=== PATIENT | male | born 1965 | race Caucasian/White ===

== ENCOUNTER 2020-07-04 17:35 | Observation (INO) ==
[2020-07-04] MEDS ORDERED: Naloxone 0.4 MG/ML INJ IVP PRN (19:48)
[2020-07-04] MEDS ORDERED: Melatonin 3 MG TABLET PO PRN (19:48)
[2020-07-04] MEDS ORDERED: Ondansetron 4 MG/2 ML VIAL IVP PRN (19:48)
[2020-07-04] MEDS ORDERED: Lactulose 200 GM, Sodium Chloride IRRigation 700 ML RC ONE (19:58)
[2020-07-04] MEDS: MetroNIDAZOLE 500 MG/100 ML 500 MG/100 ML BAG IVPB SCH (23:01)
[2020-07-05] MEDS ORDERED: 0.9 % Sodium Chloride 1,000 ML IVC ONE (00:15)
[2020-07-05] MEDS ORDERED: *HR* LORazepam 2 MG/ML VIAL IVP PRN ×3 (00:26)
[2020-07-05 03:44] LABS: Albumin 3.2 g/dL (3.5-5.7); Bilirubin,Total 5.2 mg/dL (0.3-1.0); Calcium 9.6 mg/dL (8.6-10.3); Globulin 3.1 g/dL (2.4-3.5); Magnesium 2.4 mg/dL (1.6-2.6); Phosphorous 4.1 mg/dL (2.7-4.5); Potassium 3.6 mEq/L (3.5-5.1); Total Protein 6.3 g/dL (6.4-8.9)
[2020-07-05] MEDS ORDERED: *HR* Dextrose 50 % in Water (Vial) 50 ML VIAL IVP PRN (03:49)
[2020-07-05] MEDS ORDERED: D5% in Water 1,000 ML IVC PRN (03:49)
[2020-07-05] MEDS ORDERED: Dextrose Gel 15 GM/37.5 ML TUBE PO PRN ×2 (03:49)
[2020-07-05 04:36] LABS: Eosinophils % 0.9 %
[2020-07-05 04:38] LABS: Basophils # 0.1 K/mcL (0.0-0.2); Basophils % 0.4 %; Eosinophils # 0.1 K/mcL (0.0-0.6); Hemoglobin 13.4 g/dL (12.9-16.9); Immature Granulocytes % 0.6 % (0-4); Immature Platelets 3.6 % (1.1-6.1); Lymphocytes # 1.3 K/mcL (0.6-4.6); Lymphocytes % 10.8 %; Mean Corpuscular HGB Conc 31.9 g/dL (31.6-35.5); Mean Corpuscular Hemoglobin 33.4 pg (28.0-33.3); Mean Corpuscular Volume 104.7 fL (83.0-100.0); Monocytes # 0.6 K/mcL (0.0-1.3); Monocytes % 5.4 %; Neutrophils # 9.5 K/mcL (1.6-8.9); Platelet Count 51 K/mcL (140-400); Red Blood Count 4.01 M/mcL (4.19-5.50); Segmented Neutrophils % 81.9 %; White Blood Count 11.6 K/mcL (4.3-11.1)
[2020-07-05] MEDS ORDERED: Sodium Bicarbonate 75 MEQ in D5% in Water 1,000 ML IVC SCH (05:00)
[2020-07-05] MEDS ORDERED: Insulin LISPRO 300 UNITS/3 ML VIAL SUBQ SCH (06:00)
[2020-07-05] MEDS ORDERED: Insulin Human Regular 100 UNIT in 0.9 % Sodium Chloride 100 ML IVC SCH (07:30)
[2020-07-05] MEDS ORDERED: D5% in Water 1,000 ML IVC SCH (07:30)
[2020-07-05] MEDS: MetroNIDAZOLE 500 MG/100 ML 500 MG/100 ML BAG IVPB SCH ×2 (08:22→16:52)
[2020-07-05] MEDS ORDERED: Thiamine (B-1) 200 MG in 0.9 % Sodium Chloride 50 ML IVPB SCH (09:00)
[2020-07-05 13:37] LABS: BUN/Creatinine Ratio 31 (6-26); Blood Urea Nitrogen 42 mg/dL (6-20); Calcium 9.3 mg/dL (8.6-10.3); Carbon Dioxide 18 mEq/L (23-29); Chloride 127 mEq/L (98-107); Glucose 113 mg/dL (70-105); Osmolality,Calculated 329 (280-300); Potassium 4.3 mEq/L (3.5-5.1); Sodium 154 mEq/L (136-145); eGFR For African Americans > 60 (> 60); eGFR For Non-African Americans 54 (> 60)
[2020-07-05 19:01] VITALS: BP 103/66
== END 2020-07-05 20:25 | disposition short-term general hospital (02) ==
LOC: 2NNU
PROVIDERS: ADMIT Internal Medicine; ATTEND Internal Medicine

== ENCOUNTER 2020-09-04 05:15 | Inpatient (IN) ==
[2020-09-04] MEDS ORDERED: Dextrose Gel 15 GM/37.5 ML TUBE PO PRN ×2 (08:20)
[2020-09-04] MEDS ORDERED: Ondansetron 4 MG/2 ML VIAL IVP PRN (08:20)
[2020-09-04] MEDS ORDERED: *HR* Dextrose 50 % in Water (Vial) 50 ML VIAL IVP PRN (08:20)
[2020-09-04] MEDS ORDERED: D5% in Water 1,000 ML IVC PRN (08:20)
[2020-09-04] MEDS ORDERED: Naloxone 0.4 MG/ML INJ IVP PRN (08:20)
[2020-09-04] MEDS ORDERED: Lactulose Oral Soln 20 GM/30 ML UDC PO SCH ×2 (09:00→11:15)
[2020-09-04] MEDS: Thiamine (B-1) 100 MG in 0.9 % Sodium Chloride 50 ML IVPB SCH (10:16)
[2020-09-04] MEDS: Folic Acid 1 MG in 0.9 % Sodium Chloride 50 ML IVPB SCH (10:18)
[2020-09-04] MEDS: Insulin LISPRO 300 UNITS/3 ML VIAL SUBQ SCH ×3 (12:56→20:22)
[2020-09-04] MEDS: Lactulose Oral Soln 20 GM/30 ML UDC PO SCH ×3 (12:56→20:11)
[2020-09-04] MEDS: *HR* Heparin 5,000 UNIT/ML VIAL SQ SCH (17:27)
[2020-09-05] MEDS: Insulin LISPRO 300 UNITS/3 ML VIAL SUBQ SCH ×6 (00:28→21:15)
[2020-09-05] MEDS: Lactulose Oral Soln 20 GM/30 ML UDC PO SCH ×3 (00:28→10:00)
[2020-09-05 02:58] LABS: Lymphocytes % 16.1 %
[2020-09-05 03:00] LABS: Basophils % 0.5 %; Eosinophils # 0.2 K/mcL (0.0-0.6); Hematocrit 32.2 % (37.5-50.1); Hemoglobin 10.8 g/dL (12.9-16.9); Immature Granulocytes % 0.4 % (0-4); Immature Platelets 1.9 % (1.1-6.1); Lymphocytes # 1.3 K/mcL (0.6-4.6); Mean Corpuscular HGB Conc 33.5 g/dL (31.6-35.5); Mean Corpuscular Volume 92.5 fL (83.0-100.0); Monocytes # 0.8 K/mcL (0.0-1.3); Monocytes % 10.1 %; Neutrophils # 5.5 K/mcL (1.6-8.9); Platelet Count 65 K/mcL (140-400); Red Blood Count 3.48 M/mcL (4.19-5.50); Red Cell Distribution Width 16.4 % (11.5-14.5); Segmented Neutrophils % 70.9 %; White Blood Count 7.8 K/mcL (4.3-11.1)
[2020-09-05 03:05] LABS: INR 1.3; Prothrombin Time 14.4 Seconds (9.4-12.1)
[2020-09-05 03:22] LABS: Alanine Aminotransferase 66 Units/L (7-52); Albumin 3.1 g/dL (3.5-5.7); Alkaline Phosphatase 340 Units/L (34-104); Aspartate Amino Transferase 73 Units/L (13-39); BUN/Creatinine Ratio 21 (6-26); Bilirubin,Direct 1.4 mg/dL (0.0-0.2); Bilirubin,Indirect 2.4 mg/dL (0.0-1.0); Bilirubin,Total 3.8 mg/dL (0.3-1.0); Blood Urea Nitrogen 23 mg/dL (6-20); Calcium 9.6 mg/dL (8.6-10.3); Carbon Dioxide 17 mEq/L (23-29); Chloride 120 mEq/L (98-107); Glucose 151 mg/dL (70-105); Osmolality,Calculated 307 (280-300); Potassium 3.6 mEq/L (3.5-5.1); Sodium 145 mEq/L (136-145); Total Protein 6.1 g/dL (6.4-8.9); eGFR For African Americans > 60 (> 60); eGFR For Non-African Americans > 60 (> 60)
[2020-09-05] MEDS: *HR* Heparin 5,000 UNIT/ML VIAL SQ SCH ×2 (05:37→16:01)
[2020-09-05] MEDS ORDERED: Furosemide 40 MG TABLET PO SCH (07:00)
[2020-09-05] MEDS ORDERED: NALOXEGOL OXALATE 12.5 MG PO SCH (07:00)
[2020-09-05] MEDS ORDERED: Multivit/Ca/Min/Fe/FA 1 TAB TABLET PO SCH (07:00)
[2020-09-05] MEDS ORDERED: Cholecalciferol (D-3) 1,000 UNIT (25MCG) TABLET PO SCH (09:00)
[2020-09-05] MEDS: Thiamine (B-1) 100 MG in 0.9 % Sodium Chloride 50 ML IVPB SCH (10:01)
[2020-09-05] MEDS: Folic Acid 1 MG in 0.9 % Sodium Chloride 50 ML IVPB SCH (10:02)
[2020-09-05] MEDS ORDERED: Iron Sucrose Complex 200 MG in 0.9 % Sodium Chloride 100 ML IVPB ONE (12:17)
[2020-09-05] MEDS: Ringers Solution, Lactated 1,000 ML IVC SCH (12:27)
[2020-09-05] MEDS: Lactulose Oral Soln 20 GM/30 ML UDC GTUBE SCH ×3 (12:28→21:05)
[2020-09-06] MEDS: Lactulose Oral Soln 20 GM/30 ML UDC GTUBE SCH ×7 (00:30→23:42)
[2020-09-06] MEDS: Insulin LISPRO 300 UNITS/3 ML VIAL SUBQ SCH ×7 (00:30→23:43)
[2020-09-06] MEDS: Ringers Solution, Lactated 1,000 ML IVC SCH (04:02)
[2020-09-06 04:24] LABS: Lymphocytes % 13.9 %
[2020-09-06 04:27] LABS: Basophils % 0.3 %; Eosinophils # 0.1 K/mcL (0.0-0.6); Eosinophils % 0.8 %; Hematocrit 33.1 % (37.5-50.1); Hemoglobin 11.1 g/dL (12.9-16.9); Immature Granulocytes % 0.3 % (0-4); Immature Platelets 2.2 % (1.1-6.1); Lymphocytes # 1.2 K/mcL (0.6-4.6); Mean Corpuscular HGB Conc 33.5 g/dL (31.6-35.5); Mean Corpuscular Hemoglobin 31.4 pg (28.0-33.3); Mean Corpuscular Volume 93.8 fL (83.0-100.0); Mean Platelet Volume 10.3 fL (9.4-12.4); Monocytes # 0.6 K/mcL (0.0-1.3); Monocytes % 7.1 %; Neutrophils # 6.7 K/mcL (1.6-8.9); Red Blood Count 3.53 M/mcL (4.19-5.50); Segmented Neutrophils % 77.6 %; White Blood Count 8.6 K/mcL (4.3-11.1)
[2020-09-06 04:28] LABS: Platelet Count 65 K/mcL (140-400)
[2020-09-06 04:45] LABS: Alanine Aminotransferase 65 Units/L (7-52); Albumin 3.3 g/dL (3.5-5.7); Albumin/Globulin Ratio 1.1 (1.1-2.2); Alkaline Phosphatase 339 Units/L (34-104); Aspartate Amino Transferase 67 Units/L (13-39); BUN/Creatinine Ratio 19 (6-26); Bilirubin,Direct 1.4 mg/dL (0.0-0.2); Bilirubin,Indirect 2.1 mg/dL (0.0-1.0); Bilirubin,Total 3.5 mg/dL (0.3-1.0); Blood Urea Nitrogen 27 mg/dL (6-20); Calcium 9.6 mg/dL (8.6-10.3); Carbon Dioxide 20 mEq/L (23-29); Chloride 121 mEq/L (98-107); Glucose 150 mg/dL (70-105); Magnesium 2.1 mg/dL (1.6-2.6); Osmolality,Calculated 316 (280-300); Phosphorous 4.2 mg/dL (2.7-4.5); Potassium 3.7 mEq/L (3.5-5.1); Sodium 149 mEq/L (136-145); Total Protein 6.3 g/dL (6.4-8.9); eGFR For African Americans > 60 (> 60); eGFR For Non-African Americans 53 (> 60)
[2020-09-06] MEDS: Multivitamin Liquid 15 ML UDC GTUBE SCH (05:32)
[2020-09-06] MEDS: Furosemide Oral Soln 40 MG/4 ML UDC GTUBE SCH (05:32)
[2020-09-06] MEDS: *HR* Heparin 5,000 UNIT/ML VIAL SQ SCH (05:32)
[2020-09-06] MEDS: Cholecalciferol (D-3) 1,000 UNIT (25MCG) TABLET GTUBE SCH (08:38)
[2020-09-06] MEDS: D5% in 0.45% NACL 1,000 ML IVC SCH ×2 (08:38→23:42)
[2020-09-06] MEDS: Thiamine (B-1) 100 MG TABLET GTUBE SCH (09:09)
[2020-09-06] MEDS: Folic Acid 1 MG TABLET GTUBE SCH (09:09)
[2020-09-07 00:47] LABS: Basophils % 0.5 %; Hemoglobin 10.6 g/dL (12.9-16.9)
[2020-09-07 00:49] LABS: Eosinophils # 0.1 K/mcL (0.0-0.6); Hematocrit 31.3 % (37.5-50.1); Immature Granulocytes % 0.4 % (0-4); Immature Platelets 1.5 % (1.1-6.1); Lymphocytes % 12.2 %; Mean Corpuscular HGB Conc 33.9 g/dL (31.6-35.5); Mean Corpuscular Volume 94.6 fL (83.0-100.0); Mean Platelet Volume 10.1 fL (9.4-12.4); Monocytes # 0.7 K/mcL (0.0-1.3); Monocytes % 8.1 %; Neutrophils # 6.5 K/mcL (1.6-8.9); Red Blood Count 3.31 M/mcL (4.19-5.50); Red Cell Distribution Width 16.3 % (11.5-14.5); Segmented Neutrophils % 77.8 %; White Blood Count 8.4 K/mcL (4.3-11.1)
[2020-09-07 00:52] LABS: Platelet Count 67 K/mcL (140-400)
[2020-09-07 01:07] LABS: Alanine Aminotransferase 64 Units/L (7-52); Albumin 3.2 g/dL (3.5-5.7); Albumin/Globulin Ratio 1.1 (1.1-2.2); Alkaline Phosphatase 333 Units/L (34-104); Aspartate Amino Transferase 60 Units/L (13-39); BUN/Creatinine Ratio 20 (6-26); Bilirubin,Direct 1.2 mg/dL (0.0-0.2); Bilirubin,Indirect 2.1 mg/dL (0.0-1.0); Bilirubin,Total 3.3 mg/dL (0.3-1.0); Blood Urea Nitrogen 26 mg/dL (6-20); Calcium 9.1 mg/dL (8.6-10.3); Carbon Dioxide 20 mEq/L (23-29); Chloride 121 mEq/L (98-107); Glucose 157 mg/dL (70-105); Magnesium 1.9 mg/dL (1.6-2.6); Osmolality,Calculated 318 (280-300); Sodium 150 mEq/L (136-145); Total Protein 6.2 g/dL (6.4-8.9); eGFR For African Americans > 60 (> 60); eGFR For Non-African Americans 59 (> 60)
[2020-09-07] MEDS: Lactulose Oral Soln 20 GM/30 ML UDC GTUBE SCH ×6 (04:11→23:59)
[2020-09-07] MEDS: Insulin LISPRO 300 UNITS/3 ML VIAL SUBQ SCH ×6 (04:11→23:59)
[2020-09-07] MEDS ORDERED: D5% in 0.2% NACL w KCl 1,000 ML IVC SCH (07:30)
[2020-09-07] MEDS: Thiamine (B-1) 100 MG TABLET GTUBE SCH (10:31)
[2020-09-07] MEDS: Folic Acid 1 MG TABLET GTUBE SCH (10:31)
[2020-09-07] MEDS: Multivitamin Liquid 15 ML UDC GTUBE SCH (10:31)
[2020-09-07] MEDS: Furosemide Oral Soln 40 MG/4 ML UDC GTUBE SCH (10:31)
[2020-09-07] MEDS: Cholecalciferol (D-3) 1,000 UNIT (25MCG) TABLET GTUBE SCH (10:31)
[2020-09-07] MEDS ORDERED: Acetaminophen IV 1,000 MG/100 ML BAG IVPB ONE (12:32)
[2020-09-07] MEDS ORDERED: levoFLOXacin 750 MG/150 ML 750 MG/150 ML BAG IVPB SCH (13:00)
[2020-09-07 13:37] LABS: Basophils % 0.2 %; Hemoglobin 10.6 g/dL (12.9-16.9); Lymphocytes % 5.3 %; Red Cell Distribution Width 16.4 % (11.5-14.5)
[2020-09-07 13:39] LABS: Eosinophils # 0.1 K/mcL (0.0-0.6); Eosinophils % 0.4 %; Hematocrit 32.1 % (37.5-50.1); Immature Granulocytes % 0.6 % (0-4); Immature Platelets 2.3 % (1.1-6.1); Lymphocytes # 0.6 K/mcL (0.6-4.6); Mean Corpuscular Hemoglobin 31.5 pg (28.0-33.3); Mean Corpuscular Volume 95.5 fL (83.0-100.0); Mean Platelet Volume 10.2 fL (9.4-12.4); Monocytes # 0.9 K/mcL (0.0-1.3); Monocytes % 7.2 %; Neutrophils # 10.4 K/mcL (1.6-8.9); Red Blood Count 3.36 M/mcL (4.19-5.50); Segmented Neutrophils % 86.3 %; White Blood Count 12.1 K/mcL (4.3-11.1)
[2020-09-07 13:41] LABS: Platelet Count 61 K/mcL (140-400); Platelet Estimate Decreased (Normal)
[2020-09-07 13:50] LABS: BUN/Creatinine Ratio 22 (6-26); Blood Urea Nitrogen 28 mg/dL (6-20); Calcium 9.3 mg/dL (8.6-10.3); Carbon Dioxide 18 mEq/L (23-29); Chloride 122 mEq/L (98-107); Glucose 253 mg/dL (70-105); Osmolality,Calculated 320 (280-300); Phosphorous 2.3 mg/dL (2.7-4.5); Potassium 3.6 mEq/L (3.5-5.1); Sodium 148 mEq/L (136-145); eGFR For African Americans > 60 (> 60); eGFR For Non-African Americans 59 (> 60)
[2020-09-07] MEDS ORDERED: Potassium Phosphate 44 MEQ in 0.9 % Sodium Chloride 250 ML IVPB ONE (15:55)
[2020-09-07] MEDS: Doxycycline 100 MG in 0.9 % Sodium Chloride Mini Bag 100 ML IVPB SCH (18:02)
[2020-09-07] MEDS: D5% in 0.2% NACL w KCl 1,000 ML IVC SCH (18:03)
[2020-09-08 01:13] LABS: Hematocrit 27.8 % (37.5-50.1); Hemoglobin 9.1 g/dL (12.9-16.9); Immature Platelets 2.7 % (1.1-6.1); Mean Corpuscular HGB Conc 32.7 g/dL (31.6-35.5); Mean Corpuscular Hemoglobin 31.5 pg (28.0-33.3); Mean Corpuscular Volume 96.2 fL (83.0-100.0); Red Blood Count 2.89 M/mcL (4.19-5.50); Red Cell Distribution Width 16.5 % (11.5-14.5); White Blood Count 12.4 K/mcL (4.3-11.1)
[2020-09-08 01:16] LABS: Platelet Count 62 K/mcL (140-400)
[2020-09-08 01:27] LABS: Albumin 2.8 g/dL (3.5-5.7); Albumin/Globulin Ratio 1.1 (1.1-2.2); Bilirubin,Direct 1.2 mg/dL (0.0-0.2); Bilirubin,Total 3.2 mg/dL (0.3-1.0); Globulin 2.6 g/dL (2.4-3.5); Total Protein 5.4 g/dL (6.4-8.9)
[2020-09-08 01:28] LABS: BUN/Creatinine Ratio 22 (6-26); Blood Urea Nitrogen 28 mg/dL (6-20); Calcium 8.7 mg/dL (8.6-10.3); Carbon Dioxide 19 mEq/L (23-29); Chloride 123 mEq/L (98-107); Glucose 194 mg/dL (70-105); Magnesium 1.7 mg/dL (1.6-2.6); Osmolality,Calculated 319 (280-300); Phosphorous 4.3 mg/dL (2.7-4.5); Potassium 4.1 mEq/L (3.5-5.1); Sodium 149 mEq/L (136-145); eGFR For African Americans > 60 (> 60); eGFR For Non-African Americans > 60 (> 60)
[2020-09-08 01:29] LABS: INR 1.7; Prothrombin Time 19.1 Seconds (9.4-12.1)
[2020-09-08 01:44] LABS: Lymphocytes # 1.5 K/mcL (0.6-4.6); Neutrophils # 10.4 K/mcL (1.6-8.9)
[2020-09-08 01:45] LABS: Anisocytosis 1+ (Not Present); Large Platelets Present (Not Present); Platelet Estimate Slight Decrease (Normal); Toxic Granulation Present (Not Present)
[2020-09-08] MEDS: D5% in 0.2% NACL w KCl 1,000 ML IVC SCH ×2 (02:50→11:15)
[2020-09-08] MEDS: Insulin LISPRO 300 UNITS/3 ML VIAL SUBQ SCH ×5 (04:18→20:55)
[2020-09-08] MEDS: Lactulose Oral Soln 20 GM/30 ML UDC GTUBE SCH ×5 (04:19→20:47)
[2020-09-08] MEDS: Doxycycline 100 MG in 0.9 % Sodium Chloride Mini Bag 100 ML IVPB SCH (05:10)
[2020-09-08] MEDS: Thiamine (B-1) 100 MG TABLET GTUBE SCH (08:45)
[2020-09-08] MEDS: Cholecalciferol (D-3) 1,000 UNIT (25MCG) TABLET GTUBE SCH (08:45)
[2020-09-08] MEDS: Folic Acid 1 MG TABLET GTUBE SCH (08:45)
[2020-09-08] MEDS: Multivitamin Liquid 15 ML UDC GTUBE SCH (08:46)
[2020-09-08] MEDS ORDERED: Albumin 25% 25gram/100mL 25 GM/100 ML IV.SOLN IVPB ONE (12:16)
[2020-09-08] MEDS: D5% in 0.2% NACL 500 ML IVC SCH ×2 (12:55→18:44)
[2020-09-08] MEDS: MetroNIDAZOLE 500 MG/100 ML 500 MG/100 ML BAG IVPB SCH (17:36)
[2020-09-08 18:37] LABS: BUN/Creatinine Ratio 25 (6-26); Blood Urea Nitrogen 23 mg/dL (6-20); Calcium 8.8 mg/dL (8.6-10.3); Carbon Dioxide 19 mEq/L (23-29); Chloride 121 mEq/L (98-107); Glucose 222 mg/dL (70-105); Osmolality,Calculated 309 (280-300); Sodium 144 mEq/L (136-145); eGFR For African Americans > 60 (> 60); eGFR For Non-African Americans > 60 (> 60)
[2020-09-09] MEDS: MetroNIDAZOLE 500 MG/100 ML 500 MG/100 ML BAG IVPB SCH ×3 (00:44→16:09)
[2020-09-09] MEDS: D5% in 0.2% NACL 500 ML IVC SCH ×7 (00:45→20:21)
[2020-09-09] MEDS: Lactulose Oral Soln 20 GM/30 ML UDC GTUBE SCH ×6 (00:45→20:20)
[2020-09-09] MEDS: Insulin LISPRO 300 UNITS/3 ML VIAL SUBQ SCH ×5 (00:46→16:15)
[2020-09-09] MEDS ORDERED: Vancomycin 500 MG in 0.9 % Sodium Chloride Mini Bag 100 ML IVPB SCH (01:00)
[2020-09-09 06:09] LABS: Hemoglobin 8.2 g/dL (12.9-16.9); Immature Granulocytes % 0.8 % (0-4)
[2020-09-09 06:11] LABS: Basophils % 0.2 %; Eosinophils # 0.1 K/mcL (0.0-0.6); Eosinophils % 1.4 %; Hematocrit 24.3 % (37.5-50.1); Immature Platelets 2.9 % (1.1-6.1); Lymphocytes # 0.8 K/mcL (0.6-4.6); Lymphocytes % 15.1 %; Mean Corpuscular HGB Conc 33.7 g/dL (31.6-35.5); Mean Corpuscular Hemoglobin 32.3 pg (28.0-33.3); Mean Corpuscular Volume 95.7 fL (83.0-100.0); Mean Platelet Volume 11.3 fL (9.4-12.4); Monocytes # 0.4 K/mcL (0.0-1.3); Neutrophils # 3.7 K/mcL (1.6-8.9); Nucleated Red Blood Cells 0.4 /100 WBC (0); Red Blood Count 2.54 M/mcL (4.19-5.50); Red Cell Distribution Width 16.8 % (11.5-14.5); Segmented Neutrophils % 74.5 %
[2020-09-09 06:16] LABS: INR 1.5; Prothrombin Time 17.5 Seconds (9.4-12.1)
[2020-09-09 06:17] LABS: Platelet Count 40 K/mcL (140-400)
[2020-09-09 06:26] LABS: Albumin 2.8 g/dL (3.5-5.7); Albumin/Globulin Ratio 1.2 (1.1-2.2); Bilirubin,Indirect 1.2 mg/dL (0.0-1.0); Bilirubin,Total 2.2 mg/dL (0.3-1.0); Globulin 2.3 g/dL (2.4-3.5); Total Protein 5.1 g/dL (6.4-8.9)
[2020-09-09 06:27] LABS: BUN/Creatinine Ratio 22 (6-26); Blood Urea Nitrogen 18 mg/dL (6-20); Calcium 8.7 mg/dL (8.6-10.3); Carbon Dioxide 19 mEq/L (23-29); Chloride 121 mEq/L (98-107); Glucose 212 mg/dL (70-105); Magnesium 1.7 mg/dL (1.6-2.6); Osmolality,Calculated 304 (280-300); Phosphorous 1.8 mg/dL (2.7-4.5); Potassium 3.3 mEq/L (3.5-5.1); Sodium 143 mEq/L (136-145); eGFR For African Americans > 60 (> 60); eGFR For Non-African Americans > 60 (> 60)
[2020-09-09] MEDS ORDERED: Potassium Chloride 20 MEQ, Lidocaine 1% 2 ML in 0.9 % Sodium Chloride 250 ML IVPB ONE (07:53)
[2020-09-09] MEDS ORDERED: Potassium Phosphate 44 MEQ in 0.9 % Sodium Chloride 250 ML IVPB ONE (07:55)
[2020-09-09] MEDS: Cholecalciferol (D-3) 1,000 UNIT (25MCG) TABLET GTUBE SCH (07:58)
[2020-09-09] MEDS: Thiamine (B-1) 100 MG TABLET GTUBE SCH (07:58)
[2020-09-09] MEDS: Folic Acid 1 MG TABLET GTUBE SCH (07:58)
[2020-09-09] MEDS: Multivitamin Liquid 15 ML UDC GTUBE SCH (08:09)
[2020-09-09] MEDS: levoFLOXacin 750 MG/150 ML 750 MG/150 ML BAG IVPB SCH (15:20)
[2020-09-10] MEDS: Insulin LISPRO 300 UNITS/3 ML VIAL SUBQ SCH ×7 (00:11→22:43)
[2020-09-10] MEDS: D5% in 0.2% NACL 500 ML IVC SCH ×2 (00:18→04:43)
[2020-09-10] MEDS: MetroNIDAZOLE 500 MG/100 ML 500 MG/100 ML BAG IVPB SCH ×3 (00:21→16:28)
[2020-09-10] MEDS: Lactulose Oral Soln 20 GM/30 ML UDC GTUBE SCH ×6 (00:22→19:42)
[2020-09-10 02:53] LABS: Hematocrit 25.7 % (37.5-50.1); Mean Corpuscular Volume 96.3 fL (83.0-100.0); Red Blood Count 2.67 M/mcL (4.19-5.50)
[2020-09-10 02:55] LABS: Basophils % 0.6 %; Eosinophils # 0.1 K/mcL (0.0-0.6); Eosinophils % 1.8 %; Hemoglobin 8.4 g/dL (12.9-16.9); Immature Granulocytes % 0.8 % (0-4); Immature Platelets 2.9 % (1.1-6.1); Lymphocytes # 0.6 K/mcL (0.6-4.6); Lymphocytes % 12.3 %; Mean Corpuscular HGB Conc 32.7 g/dL (31.6-35.5); Mean Corpuscular Hemoglobin 31.5 pg (28.0-33.3); Mean Platelet Volume 10.1 fL (9.4-12.4); Monocytes # 0.5 K/mcL (0.0-1.3); Monocytes % 8.8 %; Neutrophils # 3.9 K/mcL (1.6-8.9); Red Cell Distribution Width 16.4 % (11.5-14.5); Segmented Neutrophils % 75.7 %; White Blood Count 5.1 K/mcL (4.3-11.1)
[2020-09-10 03:07] LABS: Platelet Count 47 K/mcL (140-400)
[2020-09-10 03:11] LABS: Alanine Aminotransferase 48 Units/L (7-52); Albumin 2.7 g/dL (3.5-5.7); Albumin/Globulin Ratio 1.1 (1.1-2.2); Alkaline Phosphatase 249 Units/L (34-104); Aspartate Amino Transferase 57 Units/L (13-39); BUN/Creatinine Ratio 17 (6-26); Bilirubin,Direct 0.9 mg/dL (0.0-0.2); Bilirubin,Indirect 1.1 mg/dL (0.0-1.0); Blood Urea Nitrogen 12 mg/dL (6-20); Calcium 8.6 mg/dL (8.6-10.3); Carbon Dioxide 18 mEq/L (23-29); Chloride 121 mEq/L (98-107); Globulin 2.4 g/dL (2.4-3.5); Glucose 138 mg/dL (70-105); Magnesium 1.6 mg/dL (1.6-2.6); Osmolality,Calculated 294 (280-300); Potassium 3.6 mEq/L (3.5-5.1); Sodium 141 mEq/L (136-145); Total Protein 5.1 g/dL (6.4-8.9); eGFR For African Americans > 60 (> 60); eGFR For Non-African Americans > 60 (> 60)
[2020-09-10] MEDS: Thiamine (B-1) 100 MG TABLET GTUBE SCH (10:05)
[2020-09-10] MEDS: Multivitamin Liquid 15 ML UDC GTUBE SCH (10:05)
[2020-09-10] MEDS: Folic Acid 1 MG TABLET GTUBE SCH (10:05)
[2020-09-10] MEDS: Cholecalciferol (D-3) 1,000 UNIT (25MCG) TABLET GTUBE SCH (10:05)
[2020-09-10] MEDS: levoFLOXacin 750 MG/150 ML 750 MG/150 ML BAG IVPB SCH ×3 (11:59→16:28)
[2020-09-11] MEDS: MetroNIDAZOLE 500 MG/100 ML 500 MG/100 ML BAG IVPB SCH ×4 (00:30→23:49)
[2020-09-11] MEDS: Lactulose Oral Soln 20 GM/30 ML UDC GTUBE SCH ×6 (00:30→22:28)
[2020-09-11] MEDS: Insulin LISPRO 300 UNITS/3 ML VIAL SUBQ SCH ×6 (00:30→22:29)
[2020-09-11 03:26] LABS: BUN/Creatinine Ratio 15 (6-26); Blood Urea Nitrogen 10 mg/dL (6-20); Calcium 7.9 mg/dL (8.6-10.3); Carbon Dioxide 16 mEq/L (23-29); Chloride 119 mEq/L (98-107); Glucose 155 mg/dL (70-105); Magnesium 1.6 mg/dL (1.6-2.6); Osmolality,Calculated 290 (280-300); Potassium 3.2 mEq/L (3.5-5.1); Sodium 139 mEq/L (136-145); eGFR For African Americans > 60 (> 60); eGFR For Non-African Americans > 60 (> 60)
[2020-09-11 03:56] LABS: Basophils % 0.2 %; Eosinophils # 0.1 K/mcL (0.0-0.6); Eosinophils % 1.9 %; Hematocrit 22.8 % (37.5-50.1); Hemoglobin 7.7 g/dL (12.9-16.9); Immature Granulocytes % 0.9 % (0-4); Lymphocytes # 0.6 K/mcL (0.6-4.6); Lymphocytes % 12.9 %; Mean Corpuscular HGB Conc 33.8 g/dL (31.6-35.5); Mean Corpuscular Hemoglobin 31.6 pg (28.0-33.3); Mean Corpuscular Volume 93.4 fL (83.0-100.0); Mean Platelet Volume 10.8 fL (9.4-12.4); Monocytes # 0.4 K/mcL (0.0-1.3); Monocytes % 8.4 %; Red Blood Count 2.44 M/mcL (4.19-5.50); Red Cell Distribution Width 16.6 % (11.5-14.5); Segmented Neutrophils % 75.7 %; White Blood Count 4.7 K/mcL (4.3-11.1)
[2020-09-11 03:59] LABS: Neutrophils # 3.6 K/mcL (1.6-8.9); Platelet Count 44 K/mcL (140-400)
[2020-09-11] MEDS: Thiamine (B-1) 100 MG TABLET GTUBE SCH (08:19)
[2020-09-11] MEDS: Cholecalciferol (D-3) 1,000 UNIT (25MCG) TABLET GTUBE SCH (08:19)
[2020-09-11] MEDS: Folic Acid 1 MG TABLET GTUBE SCH (08:19)
[2020-09-11] MEDS: Multivitamin Liquid 15 ML UDC GTUBE SCH (08:19)
[2020-09-11] MEDS ORDERED: Potassium Phosphate 44 MEQ in 0.9 % Sodium Chloride 250 ML IVPB ONE (12:00)
[2020-09-11] MEDS: levoFLOXacin 750 MG/150 ML 750 MG/150 ML BAG IVPB SCH (16:41)
[2020-09-12] MEDS: Insulin LISPRO 300 UNITS/3 ML VIAL SUBQ SCH ×6 (01:59→19:58)
[2020-09-12 02:29] LABS: Mean Corpuscular HGB Conc 33.7 g/dL (31.6-35.5); Red Cell Distribution Width 17.2 % (11.5-14.5)
[2020-09-12 02:31] LABS: Hematocrit 24.3 % (37.5-50.1); Hemoglobin 8.2 g/dL (12.9-16.9); Immature Platelets 2.5 % (1.1-6.1); Mean Corpuscular Hemoglobin 32.3 pg (28.0-33.3); Mean Corpuscular Volume 95.7 fL (83.0-100.0); Mean Platelet Volume 10.8 fL (9.4-12.4); Red Blood Count 2.54 M/mcL (4.19-5.50); White Blood Count 4.5 K/mcL (4.3-11.1)
[2020-09-12 02:47] LABS: BUN/Creatinine Ratio 19 (6-26); Blood Urea Nitrogen 13 mg/dL (6-20); Calcium 7.7 mg/dL (8.6-10.3); Carbon Dioxide 18 mEq/L (23-29); Chloride 118 mEq/L (98-107); Glucose 283 mg/dL (70-105); Osmolality,Calculated 302 (280-300); Potassium 3.8 mEq/L (3.5-5.1); Sodium 141 mEq/L (136-145); eGFR For African Americans > 60 (> 60); eGFR For Non-African Americans > 60 (> 60)
[2020-09-12 08:36] LABS: Alanine Aminotransferase 35 Units/L (7-52); Albumin 2.5 g/dL (3.5-5.7); Alkaline Phosphatase 249 Units/L (34-104); Aspartate Amino Transferase 34 Units/L (13-39); Bilirubin,Direct 0.7 mg/dL (0.0-0.2); Bilirubin,Indirect 0.9 mg/dL (0.0-1.0); Bilirubin,Total 1.6 mg/dL (0.3-1.0); Globulin 2.4 g/dL (2.4-3.5); Total Protein 4.9 g/dL (6.4-8.9)
[2020-09-12] MEDS: MetroNIDAZOLE 500 MG/100 ML 500 MG/100 ML BAG IVPB SCH (09:20)
[2020-09-12] MEDS: Cholecalciferol (D-3) 1,000 UNIT (25MCG) TABLET PO SCH (09:20)
[2020-09-12] MEDS: Folic Acid 1 MG TABLET PO SCH (09:20)
[2020-09-12] MEDS: Thiamine (B-1) 100 MG TABLET PO SCH (09:20)
[2020-09-12] MEDS: Lactulose Oral Soln 20 GM/30 ML UDC PO SCH ×5 (11:48→19:58)
[2020-09-13] MEDS: Insulin LISPRO 300 UNITS/3 ML VIAL SUBQ SCH ×4 (00:59→09:43)
[2020-09-13] MEDS: Lactulose Oral Soln 20 GM/30 ML UDC PO SCH ×3 (02:54→09:42)
[2020-09-13] MEDS: D5% in 0.2% NACL 500 ML IVC SCH (06:13)
[2020-09-13 06:55] VITALS: BP 98/66
[2020-09-13] MEDS: Folic Acid 1 MG TABLET PO SCH (09:43)
[2020-09-13] MEDS: Thiamine (B-1) 100 MG TABLET PO SCH (09:43)
[2020-09-13] MEDS: Cholecalciferol (D-3) 1,000 UNIT (25MCG) TABLET PO SCH (09:43)
== END 2020-09-13 12:03 | DRG 279 ==
LOC: 2ANU → SUATTDRO 07:30 → 2ANU 09-09 12:42
PROVIDERS: ADMIT Internal Medicine; ATTEND Internal Medicine